=== PATIENT | female | born 1970 | race African-American/Black ===

== ENCOUNTER 2018-12-26 19:04 | Emergency (ER) | payer OTHER ==
[~2018-12-26] VITALS: Ht 167.6 cm; Wt 105.9 kg
[2018-12-26 19:10] VITALS: BP 191/97
--- NOTE | 2018-12-26 19:12 | NUR ---
TO LOBBY AWAITNG BED IN MAIN ED.
--- NOTE | 2018-12-26 20:34 | NUR ---
PT REMAINS IS LOBBY AWAITING BED IN ED.
--- NOTE | 2018-12-26 21:13 | NUR ---
PT WAS CALLED FROM THE LOBBY, NO ANSWER. LWBS
--- NOTE | 2018-12-26 21:39 | NUR ---
PT WAS CALLED SECOND TIME IN LOBBY TO COME BACK, NO ANSWER, LWBS
--- NOTE | 2018-12-26 21:40 | NUR ---
PATIENT LEFT WITHOUT BEING SEEN BY . NO FURTHER CARE PROVIDED FOR PATIENT.
== END 2018-12-26 21:13 | disposition left against medical advice (07) ==
LOC: MED 19:04
DX: K13.0 Diseases of lips (principal); Z53.21 Procedure and treatment not carried out due to patient leaving prior to being seen by health care provider